=== PATIENT | male | born 1955 | race Caucasian/White ===

== ENCOUNTER 2024-11-16 14:39 | Emergency (ER) | payer MEDICARE, OTHER ==
[~2024-11-16] VITALS: Ht 172.7 cm; Wt 68.0 kg
[2024-11-16 14:45] VITALS: BP 130/80; PULSE 67; RESP 18; TEMP 97.9; O2SAT 0
[2024-11-16] MEDS ORDERED: NYST30CR9 TP (16:56)
== END 2024-11-16 17:10 | disposition home or self-care (01) ==
LOC: EDSEX 14:39 → EMS 14:39
DX: B35.8 Other dermatophytoses (principal)
CPT/HCPCS: 99283; Z7502